=== PATIENT | male | born 1995 | race Caucasian/White ===

== ENCOUNTER 2019-07-15 14:00 | Emergency (ER) | payer OTHER ==
[~2019-07-15] VITALS: Ht 188 cm; Wt 74.8 kg
--- NOTE | 2019-07-15 14:15 | NUR ---
[facility] C/O R HAND PAIN "PUNCH THE WALL YESTERDAY", TO ER BED 11, HOOKED TO MONITOR, PATIENT AOx4 , BREATHING EVEN AND UNLABORED. AWAITING MD COTO. Addendum: 07/15/19 at 1524 by ALLEN [facility] C/O L HAND PAIN "PUNCH THE WALL YESTERDAY", TO ER BED 11, HOOKED TO MONITOR, PATIENT AOx4 , BREATHING EVEN AND UNLABORED. AWAITING MD COTO.
--- NOTE | 2019-07-15 14:21 | NUR ---
DR KNIGHT AT BEDSIDE
[2019-07-15] MEDS ORDERED: IBUPROFEN 600 MG TABLET PO ONE ×2 (14:30→14:44)
[2019-07-15] MEDS ORDERED: oxyCODONE/APAP (5/325 MG) 1 UDTAB TABLET ONE ×2 (15:20→16:39)
[2019-07-15] MEDS ORDERED: oxyCODONE/APAP (5/325 MG) 1 UDTAB TABLET PO ONE ×2 (15:30→17:00)
--- NOTE | 2019-07-15 16:42 | NUR ---
Patient discharged in custody of Officer Savi #[id number] in stable condition. Written and verbal after care instructions given. Patient and [employer] verbalizes understanding of instruction.
[2019-07-15 16:44] VITALS: BP 121/67
== END 2019-07-15 16:44 ==
LOC: ER 14:03
DX: S62.397A Other fracture of fifth metacarpal bone, left hand, initial encounter for closed fracture (principal); F17.200 Nicotine dependence, unspecified, uncomplicated; W22.01XA Walked into wall, initial encounter; Y93.89 Activity, other specified; Y92.89 Other specified places as the place of occurrence of the external cause; Y99.8 Other external cause status
CPT/HCPCS: 73130-TC